=== PATIENT | female | born 1980 | race Hispanic/Latino ===

== ENCOUNTER 2025-02-11 20:12 | Emergency (ER) | payer OTHER, SELFPAY ==
[~2025-02-11] VITALS: Ht 157.5 cm; Wt 70.3 kg
[~2025-02-11 20:12] MED LIST: ACET1TAB12 PO; FERS325 PO; PREN-147 PO
--- NOTE | 2025-02-11 20:15 | NUR ---
UA CUP PROVIDED
[2025-02-11 21:13] LABS: IMMATURE GRANULOCYTE ABSOLUTE 0.06 K/uL (0-1); NUCLEATED RED BLOOD CELLS 0.0 % (0.0-0.19); PLATELET COUNT (AUTO) 385 K/uL (130-400); RED BLOOD CELL COUNT(AUTO) 4.09 MIL/uL (4.00-5.50); RED CELL DISTRIBUTION WIDTH 13.2 % (11.0-15.5); WHITE BLOOD COUNT (AUTO) 11.4 K/uL (4.8-10.8)
[2025-02-11 21:21] LABS: CREATININE 0.6 mg/dL (0.5-1.0); GLOMERULAR FILTR. RATE CALC 113.0 mL/min (>90); GLUCOSE,RANDOM 83.0 mg/dL (70-105); SODIUM SERUM 139.0 mmol/L (136-145); UREA NITROGEN, BLOOD 8.0 mg/dL (7-18)
[2025-02-11 21:30] LABS: CREATINE KINASE, TOTAL 57.0 U/L (21-232)
--- NOTE | 2025-02-11 22:01 | EKG ---
[facility] Test Date: 2025-02-11 Test Time: 21:56:33 Pat Name: SONJA BOTELLO Department: [facility] Room: Gender: F Marker Hand: [id number] : 1980 Requested By: LENNY WHITLOCK Order Number: [id number] Reading MD: Jeremie Davis Measurements Intervals [place] Rate: 60 P: -19 NM: 142 QRS: 5 QRSD: 78 T: 32 QT: 410 QTc: 411 Interpretive Statements Sinus rhythm No previous ECG available for comparison Electronically Signed On 02-12-2025 13:24:02 CDT by Jeremie Davis Please click the below link to view image of tracing.
--- NOTE | 2025-02-11 22:51 | HMCIMG ---
EXAM: Non-contrast CT examination of the Brain CLINICAL HISTORY: Dizziness. Nausea and vomiting. TECHNIQUE: Thin collimated axial CT images of the brain were obtained, with sagittal and coronal reformatted images also submitted. A CT scan is done according to ALARA (As Low as Reasonably Achievable). CONTRAST USED: None. COMPARISON: None provided. FINDINGS: No acute intracranial abnormality is present. No acute cortical infarction, hemorrhage, intra-axial mass, or mass effect. No hydrocephalus or abnormal extra-axial fluid collections. The posterior fossa is unremarkable. The skull base and calvarium are intact. 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 Nonspecific calcifications along the frontal falx are bright. There is a small 8 x 8 mm focal calcified mass along the frontal falx cerebri, could be a calcified meningioma. The included portions of the paranasal sinuses and mastoid air cells are clear. Mild rightward deviation of the nasal septum with a 3 mm septal spur impinging on the right inferior nasal turbinate. IMPRESSION: No acute intracranial abnormality is present. Questionable small calcified meningioma in the frontal falx cerebri. /[place]
--- NOTE | 2025-02-11 23:08 | HMCIMG ---
EXAM: CR Chest, 1 view CLINICAL HISTORY: Dizziness. COMPARISON: None provided. FINDINGS: The lungs show no infiltrates or other acute findings. No pleural effusion or pneumothorax. The cardiomediastinal silhouette is within normal limits. No acute osseous abnormality. IMPRESSION: No acute cardiopulmonary process is evident. /[place]
[2025-02-11] MEDS: 0.9%NACL 1000ML 1,000 ML IV SCH (23:18)
[2025-02-12 00:04] LABS: APPEARANCE,URINE CLEAR (CLEAR); GLUCOSE, URINE (UA) NEGATIVE (NEGATIVE); LEUKOCYTE ESTERASE ,URINE NEGATIVE Leu/uL (NEGATIVE); NITRATE,URINE NEGATIVE (NEGATIVE); OCCULT BLOOD,URINE LARGE (NEGATIVE)
[2025-02-12 00:07] LABS: ADD UA MICROSCOPIC YES
--- NOTE | 2025-02-12 00:07 | ERN ---
ED Note History of Present Illness Stated Complaint: DIZZINESS Chief Complaint: Dizzy/Light Headed Time Seen by MD: 20:21 Time Seen by Midlevel: 20:21 Dictation: The Patient is a 44-year-old with a history of , cholecystectomy who presents to the emergency department with complaints of dizziness, nausea, nonbloody vomiting onset yesterday. Patient reports that dizziness is worse with movement. Reports feeling sensation that the room is spinning. Patient denies any fevers or head trauma. Allergies: Coded Allergies: No Known Drug Allergies (Unverified Allergy, Unknown, 12/15/16) Home Meds Reported Medications Acetaminophen with Codeine (Tylenol with Codeine #3 Tablet) 1 Each Tablet, 1-2 TAB PO Q4-6 PRN for PAIN LEVEL 5 TO 10, #20 TAB 0 Refills 01/25/17 Ferrous Sulfate (Ferrous Sulfate) 325 Mg Ectab, 325 MG PO DAILYBKFST PRN for ANEMIA, #30 TAB.EC 01/25/17 Vits #90/Iron Fum/FA ( Formula Tablet) 1 Each Tablet, 1 EACH PO DAILY, TAB 12/15/16 Past Medical History Past Medical History: No Pertinent History Surgical History: Cholecystectomy, RN Note Reviewed/Agreed w/PFSH: Yes Review of System Dictation Constitutional: Negative for fever,chills, and weight loss Eyes: Negative for injury, pain,redness, and discharge ENT: Negative for injury,pain or swelling Cardiovascular: Negative for chest pain, palpitations, and edema Respiratory: Negative for shortness of breath, cough, and wheezing, Abdomen/GI: Negative for abdominal pain, , diarrhea, and constipation positive for nausea and vomiting Back: Negative for injury and pain : Negative for injury, bleeding and discharge MS/Extremity: Negative for injury and deformity Skin: Negative for rash, and discoloration Neuro: Negative for headache, weakness, numbness, tingling, and seizure positive for dizziness Psych: Negative for suicide ideation, homicidal ideation, and hallucinations Initial Vital Sign VS Vital Signs Date Time Temp Pulse Resp B/P (MAP) Pulse Ox O2 Delivery O2 Flow Rate FiO2 02/11/25 20:14 98.1 79 18 135/85 98 Room Air Physical Exam Dictation Vital Signs reviewed General Appearance: Alert, oriented x 3, no acute distress, well developed, nourished. Head and Face: non-traumatic. Eyes: PERRL, pink conjunctivas, eyelid no trauma, anterior chamber with arcus senilis. Ears: Pinnas intact and no signs of trauma or erythema ear canals clear and no discharge TM no erythema Nose: No discharge, no bleeding. Oropharynx: Mouth normal, tongue pink. pharynx clear,no erythema, tonsils no exudates, no abscesses noted, mucous membrane moist Neck: Supple, non-tender, no thyromegaly, no masses, no JVD, no bruits Breast:Deferred Chest:No tenderness, no crepitus, no paradoxical movement, no retractions Lungs:Clear, well-ventilated, symmetric, no rales, no wheezing, no rhonchi, no stridor, good breath sounds bilaterally Heart: Regular rate, regular rhythm, no murmur, no gallops Vascular: no peripheral edema, Abdomen: Soft, positive bowel sounds, nondistended, no guarding, nontender, no rebound, no masses no hepatomegaly, no splenomegaly, no Su's sign, no hernias. Rectal: Deferred Genital: Deferred Neurological: Normal speech, motor function intact, sensory function intact , upper extremities equal in strength, lower extremities equal in strength, no facial droop, no slurred speech.. Musculoskeletal: Neck nontender, full range of motion, back nontender, full range of motion, Extremities: nontender, full range of motion Skin: Color pink, dry, no turgor, no rash, no lacerations, no abrasions, no contusions. Lymphatic: Deferred Results (Laboratory/Radiology) Laboratory/Radiology Laboratory Tests Test 02/11/25 21:00 02/11/25 21:55 02/11/25 23:47 White Blood Count 11.4 K/uL (4.8-10.8) H Red Blood Count 4.09 MIL/uL (4.00-5.50) Hemoglobin 13.1 g/dL (12.0-16.0) Hematocrit 37.5 % (36-48) Mean Corpuscular Volume 91.7 fL (79-99) Mean Corpuscular Hemoglobin 32.0 pg (27.0-33.0) Mean Corpuscular Hemoglobin Concent 34.9 g/dL (32.0-36.0) Red Cell Distribution Width 13.2 % (11.0-15.5) Platelet Count 385 K/uL (130-400) Mean Platelet Volume 9.2 fL (7.5-10.5) Immature Granulocyte % (Auto) 0.5 % (0-1) Neutrophils (%) (Auto) 75.7 % (40.0-77.0) Lymphocytes (%) (Auto) 16.8 % (21.0-51.0) L Monocytes (%) (Auto) 6.3 % (3.0-13.0) Eosinophils (%) (Auto) 0.5 % (0.0-8.0) Basophils (%) (Auto) 0.2 % (0.0-5.0) Neutrophils # (Auto) 8.7 K/uL (1.8-7.7) H Lymphocytes # (Auto) 1.9 K/uL (1.0-4.8) Monocytes # (Auto) 0.7 K/uL (0.1-1.0) Eosinophils # (Auto) 0.06 K/uL (0.00-0.70) Basophils # (Auto) 0.02 K/uL (0.00-0.20) Absolute Immature Granulocyte (auto 0.06 K/uL (0-1) Nucleated Red Blood Cells 0.0 % (0.0-0.19) Sodium Level 139 mmol/L (136-145) Potassium Level 3.6 mmol/L (3.5-5.1) Chloride Level 103 mmol/L (101-111) Carbon Dioxide Level 31 mmol/L (21-32) Blood Urea Nitrogen 8 mg/dL (7-18) Creatinine 0.6 mg/dL (0.5-1.0) Glomerular Filtration Rate Calc 113 mL/min (>90) Random Glucose 83 mg/dL (70-105) Total Calcium 9.1 mg/dL (8.5-10.1) Magnesium Level 2.20 mg/dL (1.80-2.40) Total Creatine Kinase 57 U/L (21-232) Troponin I High Sensitivity 57 ng/L (4-50) *H 57 ng/L (4-50) *H Serum Test, Qualitative NEGATIVE (NEGATIVE) Urine Color LIGHT-YELLOW (YELLOW) Urine Appearance CLEAR (CLEAR) Urine pH 6.5 (5.0-8.0) Urine Specific [place] 1.005 (1.001-1.031) Urine Protein NEGATIVE mg/dL (NEGATIVE) Urine Glucose (UA) NEGATIVE mg/dL (NEGATIVE) Urine Ketones 10 mg/dL (NEGATIVE) H Urine Occult Blood LARGE (NEGATIVE) H Urine Nitrate NEGATIVE (NEGATIVE) Urine Bilirubin NEGATIVE mg/dL (NEGATIVE) Urine Urobilinogen 0.2 mg/dL (0.2-1.0) Urine Leukocyte Esterase NEGATIVE Girish/uL REASON: dizzy ORDERING PHYSICIAN: LENNY WHITLOCK PROCEDURE: CXR1VW - CHEST 1VW EXAM: CR Chest, 1 view CLINICAL HISTORY: Dizziness. COMPARISON: None provided. FINDINGS: The lungs show no infiltrates or other acute findings. No pleural effusion or pneumothorax. The cardiomediastinal silhouette is within normal limits. No acute osseous abnormality. IMPRESSION: No acute cardiopulmonary process is evident. /[place] REASON: dizzy, n/v ORDERING PHYSICIAN: LENNY WHITLOCK [employer] PROCEDURE: HEAD WO - CT HEAD/BRAIN W/O CONTRAST EXAM: Non-contrast CT examination of the Brain CLINICAL HISTORY: Dizziness. Nausea and vomiting. TECHNIQUE: Thin collimated axial CT images of the brain were obtained, with sagittal and coronal reformatted images also submitted. A CT scan is done according to ALARA (As Low as Reasonably Achievable). CONTRAST USED: None. COMPARISON: None provided. FINDINGS: No acute intracranial abnormality is present. No acute cortical infarction, hemorrhage, intra-axial mass, or mass effect. No hydrocephalus or abnormal extra-axial fluid collections. The posterior fossa is unremarkable. The skull base and calvarium are intact. 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 Nonspecific calcifications along the frontal falx are bright. There is a small 8 x 8 mm focal calcified mass along the frontal falx cerebri, could be a calcified meningioma. The included portions of the paranasal sinuses and mastoid air cells are clear. Mild rightward deviation of the nasal septum with a 3 mm septal spur impinging on the right inferior nasal turbinate. IMPRESSION: No acute intracranial abnormality is present. Questionable small calcified meningioma in the frontal falx cerebri. /[place] Labs Reviewed?: Yes EKG: (+) rhythm (Sinus rhythm) EKG Comment: Date:02/11/2025 Time:2155 Ventricular rate:60 RI interval:142 QRS duration:78 QT/QTc:410/411 EKG interpretation: Sinus rhythm Reviewed by ED Attending no STEMI ED Course ED Course Orders Procedure Category Date Status Time Cbc With Differential LAB 02/11/25 Complete 20:41 Chest 1vw RAD 02/11/25 Resulted 20:41 12 Lead Ekg Tracing- EKG 02/11/25 Complete Technical 20:41 0.9%Nacl 1000ml (Ns PHA 02/11/25 In Process 1000ml) 21:00 Magnesium LAB 02/11/25 Complete 20:41 Creatine Kinase, Total LAB 02/11/25 Complete 20:41 Troponin I High LAB 02/11/25 Complete Sensitivity 20:41 Basic Metabolic Panel LAB 02/11/25 Complete 20:41 Meclizine Hcl 25 Mg PHA 02/11/25 In Process (Antivert 25 Mg) 21:00 Testing, LAB 02/11/25 Complete Serum Hcg 20:41 Orthostatic Vital CPOE 02/11/25 Transmitted Signs 20:41 Ct Head/Brain W/O CT 02/11/25 Resulted Contrast 21:32 Troponin I High LAB 02/11/25 Complete Sensitivity 21:48 Urinalysis Profile LAB 02/11/25 In Process 23:07 Drug Screen Urine LAB 02/11/25 In Process 23:07 Current Medications Medications (Trade) Dose Ordered Sig/Eli Route PRN Reason Start Time Stop Time Status Last Admin Dose Admin Meclizine HCl (ANTIvert 25 mg) 25 mg ONCE PO 02/11/25 21:00 02/12/25 06:00 02/11/25 23:18 Sodium Chloride 1,000 ml @ 0 mls/hr ONCE IV 02/11/25 21:00 02/12/25 20:59 02/11/25 23:18 Vital Signs Date Time Temp Pulse Resp B/P (MAP) Pulse Ox O2 Delivery O2 Flow Rate FiO2 02/11/25 20:14 98.1 79 18 135/85 98 Room Air Medical Decision Making MDM The Patient is a 44-year-old with a history of , cholecystectomy who presents to the emergency department with complaints of dizziness, nausea, nonbloody vomiting onset yesterday. Patient reports that dizziness is worse with movement. Reports feeling sensation that the room is spinning. Patient denies any fevers or head trauma. CBC showed mild leukocytosis, no anemia, chemistry showed no electrolyte imbalance, normal renal function, troponin 57, slightly above normal but patient with no chest pain. Second troponin was the same. EKG showed normal sinus rhythm. Chest x-ray was unremarkable. CT head showed no acute intracranial abnormality. Questionable wound small calcified meningioma in the frontal falx cerebri. On physical exam patient is neurologically intact. Stable vital signs. Nontoxic appearance. Patient reassessed and reports feeling better after medication administration. Discussed labs and imaging with the patient who agrees to be discharged and follow up with primary doctor. Case discussed with who agrees patient can be discharge. Differential diagnosis: Vertigo, intracerebral hemorrhage, dehydration, electrolyte imbalance, tachyarrhythmia Need for hospitalization: Patient does not meet criteria for hospitalization. There are no social concerns with this patient. DX & DISP Disposition: Discharge Departure Impression: Primary Impression: Vertigo Condition: Stable Scripts Meclizine HCl (Meclizine HCl) 25 Mg Tablet 25 MG PO TID for vertigo, #30 TAB 0 Refills Prov: LENNY WHITLOCK 02/12/25 Additional Instructions: Your labs were unremarkable. Your CT scan showed a questionable small meningioma which we discussed, otherwise no other acute abnormality. Please follow up with your PCP in 1-2 days. If anything worsens or changes please return to ER. FOLLOW-UP WITH PRIMARY CARE PROVIDER IN 1 TO 2 DAYS. TAKE MEDICATIONS DIRECTED HERE IN THE EMERGENCY ROOM. OKAY TO CONTINUE HOME MEDICATIONS UNLESS OTHERWISE DISCUSSED DURING YOUR VISIT IN THE EMERGENCY ROOM TODAY. RETURN TO YOUR NEAREST EMERGENCY ROOM IF SYMPTOMS WORSEN OR IF THERE IS NO IMPROVEMENT. CALL 911 IF YOU NEED IMMEDIATE ASSISTANCE. TAKE TYLENOL [id number] NEEDED AND IF NO CONTRAINDICATIONS ARE PRESENT. INCREASE ORAL HYDRATION. A WOUND CULTURE OR URINE CULTURE WAS ORDERED HERE IN THE EMERGENCY ROOM DEPARTMENT PLEASE FOLLOW-UP WITH PRIMARY CARE PROVIDER AND ADVISE THEM TO GET REPEAT PORTS FROM OUR FACILITY. IF YOU HAD ANY KECIA WRAP/SPLINTS THAT WERE APPLIED HERE, PLEASE DO NOT REMOVE THEM UNTIL YOU SEE YOUR PRIMARY CARE OR SPECIALTY. Referrals: SELF,REFERRAL (PCP) Time of Disposition: 00:13 I have reviewed the case, and I agree with, Diagnosis and Plan LENNY WHITLOCK Feb 12, 2025 00:07
[2025-02-12] MEDS ORDERED: MECL-302 PO (00:11)
[2025-02-12 00:12] LABS: SQUAMOUS EPITHELIAL CELL,UR RARE /HPF (0-2)
[2025-02-12 00:23] VITALS: BP 131/86; PULSE 54; RESP 17; TEMP 98.5; O2SAT 98
[2025-02-12 00:28] LABS: AMPHET/METH SCREEN,URINE NEGATIVE (NEGATIVE); BARBITURATE SCREEN, URINE NEGATIVE (NEGATIVE); CANNABINOID SCREEN,URINE NEGATIVE (NEGATIVE); COCAINE SCREEN,URINE NEGATIVE (NEGATIVE)
== END 2025-02-12 00:25 | disposition home or self-care (01) ==
LOC: EDH 20:12
DX: R42 Dizziness and giddiness (principal); R11.2 Nausea with vomiting, unspecified; Z90.49 Acquired absence of other specified parts of digestive tract; Z98.890 Other specified postprocedural states
CPT/HCPCS: 99285; 70450; 71045; 82550; 83735; 84484 ×2; 80048; 80305; 84703; 85025; 81001; 36415; 93005; J7030